=== PATIENT | male | born 1995 | race African-American/Black ===

== ENCOUNTER 2018-03-21 17:50 | Emergency (ER) | payer MEDICAID ==
[~2018-03-21] VITALS: Ht 185.4 cm; Wt 78.0 kg
[2018-03-21] MEDS ORDERED: MAGNESIUM/ALUMINUM HYDROXIDE/SIMETHICONE 30ML UDC PO ONE (19:15)
[2018-03-21] MEDS ORDERED: IBUPROFEN 600MG TABLET PO ONE (19:15)
[2018-03-21 19:16] LABS: CHLORIDE 105 mEq/L (98-107)
[2018-03-21 19:17] LABS: INR 1.1; PROTHROMBIN TIME 10.7 sec (9.1-11.1)
[2018-03-21 19:18] LABS: BASOPHILS % 0.6 % (0.0-2.0); EOSINOPHILS % 4.2 % (0.0-5.0); HEMATOCRIT. 43.5 % (42.0-52.0); HEMOGLOBIN. 14.6 g/dL (14.0-18.0); LYMPHOCYTES % 33.8 % (20.0-50.0); MEAN CORPUSCULAR HEMOGLOBIN 29.8 pg (28.0-32.0); MEAN PLATELET VOLUME 9.7 fl (7.4-10.4); MONOCYTES % 9.1 % (2.0-8.0); NEUTROPHILS % 52.3 % (40.0-76.0); PLATELET 216 x1000/uL (130-400); RED BLOOD CELL COUNT 4.89 mill/uL (4.7-6.1); RED CELL DISTRIBUTION WIDTH 13.3 % (11.6-14.6)
[2018-03-21 20:06] VITALS: BP 126/83
[2018-03-21 20:07] LABS: *AMPHETAMINES SCREEN URINE NEGATIVE (NEGATIVE); *BARBITURATES SCREEN URINE NEGATIVE (NEGATIVE); *BENZODIAZEPINES SCREEN URINE NEGATIVE (NEGATIVE); *COCAINE SCREEN URINE NEGATIVE (NEGATIVE)
[2018-03-21 20:08] LABS: CANNABINOID URINE SCREEN NEGATIVE (NEGATIVE); METHADONE URINE SCREEN NEGATIVE (NEGATIVE); OPIATES URINE SCREEN NEGATIVE (NEGATIVE); PHENCYCLIDINE URINE SCREEN NEGATIVE (NEGATIVE)
== END 2018-03-21 21:52 | disposition home or self-care (01) ==
LOC: ER 20:24
DX: R07.9 Chest pain, unspecified (principal); J45.909 Unspecified asthma, uncomplicated; Z79.899 Other long term (current) drug therapy
CPT/HCPCS: 36415; 71045; 80053; 80305; 83690; 84484; 85025; 85610; 93005; 99285; Z7610

== ENCOUNTER 2018-12-12 21:45 | Emergency (ER) | payer MEDICAID, OTHER ==
[~2018-12-12] VITALS: Ht 182.9 cm; Wt 84.5 kg
[2018-12-13 00:28] VITALS: BP 124/82
== END 2018-12-13 00:28 | disposition home or self-care (01) ==
LOC: ER 21:55
DX: J06.9 Acute upper respiratory infection, unspecified (principal); J45.909 Unspecified asthma, uncomplicated; M79.18 Myalgia, other site
CPT/HCPCS: 99283; Z7610

== ENCOUNTER 2021-05-02 22:20 | Emergency (ER) | payer OTHER ==
[~2021-05-02] VITALS: Ht 185.4 cm; Wt 81.0 kg
[2021-05-03 00:25] LABS: CLARITY URINE CLEAR (CLEAR); COLOR URINE YELLOW (YELLOW); KETONES URINE 1+ (NEGATIVE); LEUKOCYTE ESTERASE URINE NEGATIVE (NEGATIVE); NITRITE URINE NEGATIVE (NEGATIVE); OCCULT BLOOD URINE NEGATIVE (NEGATIVE); PROTEIN URINE NEGATIVE (NEGATIVE); SPECIFIC GRAVITY URINE 1.013 (1.005-1.030); UROBILINOGEN URINE 0.2 E.U./dL (0.2-1.0)
[2021-05-03 01:19] LABS: BASOPHILS % 0.8 % (0.0-2.0); EOSINOPHILS % 0.5 % (0.0-5.0); HEMATOCRIT. 42.1 % (42.0-52.0); HEMOGLOBIN. 14.7 g/dL (14.0-18.0); LYMPHOCYTES % 46.5 % (20.0-50.0); MEAN CORPUSCULAR HEMOGLOBIN 30.1 pg (28.0-32.0); MEAN CORPUSCULAR VOLUME 86.6 fL (80.0-94.0); MEAN PLATELET VOLUME 8.5 fl (7.4-10.4); MONOCYTES % 9.3 % (2.0-8.0); NEUTROPHILS % 42.9 % (40.0-76.0); PLATELET 242 x1000/uL (130-400); RED BLOOD CELL COUNT 4.87 mill/uL (4.7-6.1); RED CELL DISTRIBUTION WIDTH 13.2 % (11.6-14.6)
[2021-05-03 01:25] LABS: CHLORIDE 105 mEq/L (98-107)
[2021-05-03 01:50] VITALS: BP 135/76
[2021-05-03] MEDS ORDERED: PYR200 PO (02:09)
[2021-05-03] MEDS ORDERED: NAPR-681 PO (02:09)
== END 2021-05-03 02:20 | disposition home or self-care (01) ==
LOC: ER 22:20
DX: R30.0 Dysuria (principal); R10.2 Pelvic and perineal pain; J45.909 Unspecified asthma, uncomplicated
CPT/HCPCS: 36415; 80053; 81003; 85025; 99283

== ENCOUNTER 2023-07-09 15:32 | Emergency (ER) | payer OTHER ==
[~2023-07-09] VITALS: Ht 177.8 cm; Wt 66.0 kg
[~2023-07-09 15:32] MED LIST: NAPR-681 PO; PYR200 PO
[2023-07-09 15:34] VITALS: BP 132/82; PULSE 87; RESP 18; TEMP 98.1; O2SAT 99
[2023-07-09] MEDS ORDERED: BENZ200C52 MT (16:51)
== END 2023-07-09 17:11 | disposition home or self-care (01) ==
LOC: ER 15:32
DX: R05.9 Cough, unspecified (principal); J45.909 Unspecified asthma, uncomplicated
CPT/HCPCS: 99283